=== PATIENT | male | born 1985 | race African-American/Black ===

== ENCOUNTER 2021-12-03 07:04 | Emergency (ER) | payer OTHER ==
[~2021-12-03] VITALS: Ht 190.5 cm; Wt 117.0 kg
[~2021-12-03 07:04] MED LIST: AMOX500C85 PO; BROMFED DM PO; CHANTIX CONTINUI1 MG PO; CHANTIX STARTIN0.5 & PO; LORA10TA3 PO; MEDROL DOSEPAK4 MG PO
== END 2021-12-03 13:56 | disposition home or self-care (01) ==
LOC: ED 07:04
DX: L03.032 Cellulitis of left toe (principal)
CPT/HCPCS: 96372; 99283